=== PATIENT | male | born 1945 | race Caucasian/White ===

== ENCOUNTER 2021-02-04 15:14 | Outpatient (CLI) | payer MEDICARE ==
[2021-02-04 15:26] LABS: INR-International Normal Ratio 1.1; PTT 37.3 sec (22.9-36.1); Prothrombin Time 14.2 sec (12.0-14.7)
== END 2021-02-04 15:15 | disposition home or self-care (01) ==
LOC: MADLAB 15:14
PROVIDERS: ATTEND Family Medicine
DX: I25.709 Atherosclerosis of coronary artery bypass graft(s), unspecified, with unspecified angina pectoris (principal); R60.0 Localized edema
CPT/HCPCS: 36415; 85610; 85730

== ENCOUNTER 2021-02-11 09:23 | Outpatient (CLI) | payer MEDICARE ==
[2021-02-11 09:44] LABS: PTT 32.8 sec (22.9-36.1); Prothrombin Time 13.5 sec (12.0-14.7)
== END 2021-02-11 09:24 | disposition home or self-care (01) ==
LOC: MADLAB 09:23
PROVIDERS: ATTEND Family Medicine
DX: I82.432 Acute embolism and thrombosis of left popliteal vein (principal)
CPT/HCPCS: 36415; 85610; 85730

== ENCOUNTER 2021-02-18 10:15 | Outpatient (CLI) | payer MEDICARE ==
[2021-02-18 10:42] LABS: INR-International Normal Ratio 1.1; PTT 34.7 sec (22.9-36.1); Prothrombin Time 14.6 sec (12.0-14.7)
== END 2021-02-18 10:16 | disposition home or self-care (01) ==
LOC: MADLAB 10:15
PROVIDERS: ATTEND Family Medicine
DX: I82.432 Acute embolism and thrombosis of left popliteal vein (principal)
CPT/HCPCS: 36415; 85610; 85730

== ENCOUNTER 2021-02-25 09:54 | Outpatient (CLI) | payer MEDICARE ==
[2021-02-25 10:33] LABS: INR-International Normal Ratio 1.2; PTT 37.8 sec (22.9-36.1); Prothrombin Time 15.8 sec (12.0-14.7)
== END 2021-02-25 09:55 | disposition home or self-care (01) ==
LOC: MADLAB 09:54
PROVIDERS: ATTEND Family Medicine
DX: I82.432 Acute embolism and thrombosis of left popliteal vein (principal)
CPT/HCPCS: 36415; 85610; 85730

== ENCOUNTER 2021-03-04 09:41 | Outpatient (CLI) | payer MEDICARE ==
[2021-03-04 10:06] LABS: INR-International Normal Ratio 1.7; Prothrombin Time 20.4 sec (12.0-14.7)
== END 2021-03-04 09:42 | disposition home or self-care (01) ==
LOC: MADLAB 09:41
PROVIDERS: ATTEND Family Medicine
DX: I82.432 Acute embolism and thrombosis of left popliteal vein (principal)
CPT/HCPCS: 36415; 85610

== ENCOUNTER 2021-03-08 10:06 | Outpatient (CLI) | payer MEDICARE ==
[2021-03-08 10:26] LABS: Prothrombin Time 23.2 sec (12.0-14.7)
== END 2021-03-08 10:07 | disposition home or self-care (01) ==
LOC: MADLAB 10:06
PROVIDERS: ATTEND Family Medicine
DX: Z51.81 Encounter for therapeutic drug level monitoring (principal); I82.432 Acute embolism and thrombosis of left popliteal vein; Z79.01 Long term (current) use of anticoagulants
CPT/HCPCS: 36415; 85610

== ENCOUNTER 2021-03-11 09:33 | Outpatient (CLI) | payer MEDICARE ==
[2021-03-11 10:03] LABS: INR-International Normal Ratio 1.7; PTT 40.6 sec (22.9-36.1); Prothrombin Time 20.6 sec (12.0-14.7)
== END 2021-03-11 09:34 | disposition home or self-care (01) ==
LOC: MADLAB 09:33
PROVIDERS: ATTEND Family Medicine
DX: Z51.81 Encounter for therapeutic drug level monitoring (principal); I82.432 Acute embolism and thrombosis of left popliteal vein; Z79.01 Long term (current) use of anticoagulants
CPT/HCPCS: 36415; 85610; 85730

== ENCOUNTER 2021-03-18 09:40 | Outpatient (CLI) | payer MEDICARE ==
[2021-03-18 10:44] LABS: INR-International Normal Ratio 2.1
[2021-03-18 10:45] LABS: PTT 46.1 sec (22.9-36.1)
== END 2021-03-18 09:41 | disposition home or self-care (01) ==
LOC: MADLAB 09:40
PROVIDERS: ATTEND Family Medicine
DX: I82.432 Acute embolism and thrombosis of left popliteal vein (principal)
CPT/HCPCS: 36415; 85610; 85730

== ENCOUNTER 2021-04-01 10:35 | Outpatient (CLI) | payer MEDICARE ==
[2021-04-01 10:59] LABS: INR-International Normal Ratio 2.8; PTT 70.6 sec (22.9-36.1)
== END 2021-04-01 10:36 | disposition home or self-care (01) ==
LOC: MADLABBHPM 10:35
PROVIDERS: ATTEND Family Medicine
DX: I82.432 Acute embolism and thrombosis of left popliteal vein (principal)
CPT/HCPCS: 36415; 85610; 85730

== ENCOUNTER 2021-04-29 09:43 | Outpatient (CLI) | payer MEDICARE ==
[2021-04-29 10:10] LABS: INR-International Normal Ratio 3.6; Prothrombin Time 36.5 sec (12.0-14.7)
[2021-04-29 10:11] LABS: PTT 60.9 sec (22.9-36.1)
== END 2021-04-29 09:44 | disposition home or self-care (01) ==
LOC: MADLAB 09:43
PROVIDERS: ATTEND Family Medicine
DX: I82.432 Acute embolism and thrombosis of left popliteal vein (principal)
CPT/HCPCS: 36415; 85610; 85730

== ENCOUNTER 2021-05-24 08:37 | Outpatient (CLI) | payer MEDICARE ==
[2021-05-24 17:22] LABS: INR-International Normal Ratio 2.8; Prothrombin Time 29.5 sec (12.0-14.7)
[2021-05-24 17:23] LABS: PTT 53.5 sec (22.9-36.1)
== END 2021-05-24 08:38 | disposition home or self-care (01) ==
LOC: MADLAB 08:37
PROVIDERS: ATTEND Family Medicine
DX: I82.432 Acute embolism and thrombosis of left popliteal vein (principal)
CPT/HCPCS: 36415; 85610; 85730

== ENCOUNTER 2021-07-01 17:28 | Outpatient (CLI) | payer MEDICARE ==
[2021-07-01 19:50] LABS: INR-International Normal Ratio 2.6
== END 2021-07-01 17:29 | disposition home or self-care (01) ==
LOC: MADLAB 17:28
PROVIDERS: ATTEND Family Medicine
DX: I82.432 Acute embolism and thrombosis of left popliteal vein (principal)
CPT/HCPCS: 85610

== ENCOUNTER 2021-09-11 16:58 | Outpatient (CLI) | payer MEDICARE | END 2021-09-11 16:59 | disposition home or self-care (01) | LOC: MADLAB 16:58 | PROVIDERS: ATTEND Family Medicine | DX: J20.9 Acute bronchitis, unspecified (principal) | CPT/HCPCS: 71046 ==